=== PATIENT | female | born 2005 | race Two or more races ===

== ENCOUNTER → 2025-04-14 | Outpatient (CLI) | payer MEDICAID, SELFPAY ==
--- NOTE | 2025-04-14 08:45 | XR_ITS ---
Examination: Abdomen sonogram, complete Date and time of exam: April 14, 2025 0840 hours INDICATIONS: Bilateral flank pain beginning 3 months ago. Technique: Multiple real-time grayscale transabdominal sonographic images of the abdomen have been obtained. Findings: Normal gallbladder Normal common bile duct 0.2 cm Pancreatic head 1.4 cm Aorta not enlarged Liver 15.6 cm smooth contour no focal liver lesions Normal hepatopedal portal venous flow Patent IVC Right kidney 9.7 cm cortex 1.2 cm Left kidney 9.1 cm cortex 1.7 cm No hydronephrosis Spleen 10.9 cm IMPRESSION: Normal gallbladder Normal common bile duct. Liver normal size no focal liver lesions
== END | disposition home or self-care (01) ==
LOC: CDIM 08:23
DX: R10.9 Unspecified abdominal pain (principal)
CPT/HCPCS: 76700

== ENCOUNTER 2025-04-16 01:30 | Emergency (ER) | payer MEDICAID, SELFPAY ==
[2025-04-16 01:31] VITALS: BMI 16.9
[2025-04-16 02:03] VITALS: BP 110/73; PULSE 89; RESP 15; TEMP 36.9; O2SAT 100
--- NOTE | 2025-04-16 02:34 | PD.EDABDPN ---
ED Abdominal Pain RME/HPI General Chief Complaint: Abdominal Pain Stated complaint: ABD PAIN X30 MINUTES Time seen by provider: 04/16/25 02:27 Arrival date/time: 04/16/25 01:30 RME / HPI RME / HPI narrative: DR OWENS MAIN ED EVALUATION: 19 y/o female with recent Hx of UTI presents to ED c/o severe epigastric abdominal pain and 2 episodes of diarrhea x 2 hours. Patient is unsure if she has been diagnosed with Gastritis in the past. She denies nausea, vomiting, constipation, cough or any other associated symptoms or aggravating factors. No modifying factors, no radiation, no migration. No other pain reported overall. Related Data Previous Rx's ?Medication ?Instructions ?Recorded psyllium husk 3 gram/5.4 gram oral 1 tbsp PO QDAY constipation #284 12/06/19 powder grams Allergies Allergy/AdvReac Type Severity Reaction Status Date / Time Penicillins AdvReac Intermediate SOB Verified 04/16/25 01:31 Review of Systems Review of Systems Systems Reviewed: All systems reviewed, normal except as documented Past Medical History Social History SMOKING STATUS: Never smoker ED Exam Narrative Physical exam: GENERAL APPEARANCE: alert and oriented x 4, well-developed, well-nourished, no acute distress VITALS: All vitals were reviewed and the pulse ox is 100% on room air, which is normal according to my interpretation. HEENT: Normocephalic, atraumatic; pupils equal, round, reactive to light; EOMI; mucous membranes pink, moist; oropharynx clear NECK: Supple LUNGS: CTABL; no wheezes, no rales, no rhonchi HEART: Regular rate, regular rhythm; normal S1, S2; no murmurs ABDOMEN: non distended; normal BS; soft, no tenderness, no guarding, no rebound; no masses, no organomegaly, no hernia BACK: no CVA tenderness EXTREMITIES: atraumatic; no edema NEUROLOGIC: awake; alert and oriented x4; cranial nerves II-XII grossly intact; no focal sensory or motor deficits PSYCHIATRIC: appropriate mood and affect SKIN: warm, dry, normal color; no rashes Course Quality Measures none Orders Category Date Time Status CT Screening NOW Care 04/16/25 04:[address] abdomen pelvis w con Stat Exams 04/16/25 04:50 Ordered CBC Stat Lab 04/16/25 03:05 Completed CMP [Comprehensive Metabolic Panel] Stat Lab 04/16/25 03:05 Completed HCG Qualitative,Urine Stat Lab 04/16/25 02:46 Completed Lipase Stat Lab 04/16/25 03:05 Completed UA, C/S IF [Urinalysis, C/S if Indicated] Stat Lab 04/16/25 02:46 Completed Lidocaine 2% Viscous [Xylocaine 2% Viscous] Med 04/16/25 02:30 Discontinued 15 ml PO X1 ONE Morphine Inj Med 04/16/25 04:49 Once 5 mg IVP X1 ONE Ondansetron Inj [Zofran Inj] Med 04/16/25 04:49 Once 4 mg IVP X1 ONE Ondansetron Odt [Zofran Odt] Med 04/16/25 02:30 Discontinued 4 mg PO X1 ONE Sodium Chloride 0.9% 1000 ml [Ns] 1,000 ml Med 04/16/25 04:49 Ordered IV 999 mls/hr mg Hyd/Al Hyd/Cristina Susp [Maalox Susp] Med 04/16/25 02:30 Discontinued 30 ml PO X1 ONE Reevaluation(s) Reevaluation #1: Patient has vomited, has diarrhea and still c/o diffused abdominal pain. Patient states she had an US on Friday to R/O hydronephrosis that was unremarkable. Will order abdomen/pelvis CT with contrast. Time: 04:48 Vital Signs Vital signs: Vital Signs Temperature 98.4 F 04/16/25 02:03 Pulse Rate 89 04/16/25 02:03 Respiratory Rate 15 04/16/25 02:03 Blood Pressure 110/73 04/16/25 02:03 Pulse Oximetry (%) 100 04/16/25 02:03 Oxygen Delivery Method Room Air 04/16/25 02:03 Abdominal Pain MDM MDM Narrative MDM Narrative:: Scribe Attestation: I, Catalina Camarena, am scribing for and in the presence of Dr. Owens. Provider Notation: Although this document has been carefully reviewed, there may still be some phonetic and other typographical errors.? These errors are purely grammatical due to imperfections in the software program and should not be construed in any way to? compromise the substance of the patient's medical care during this visit. Patient pending CT with contrast. Patient will be signed-out to oncoming ED physician. Patient data External records reviewed:: [facility] previous records (Reviewed prior ED records from 05/09/23. Patient was seen for Gastritis.) Clinical information provided by:: patient Social determinants that could affect healthcare access:: none Patient has the following chronic illnesses:: None reported How is presenting disease/condition affected by chronic disease/condition?: no chronic disease Evaluation data The following diagnostics were reviewed and interpreted by me:: lab results and radiology exam(s) Lab and/or radiology exams considered but not ordered:: None Interpretation Summary: Bloodwork and urine are unremarkable. RADIOLOGY Abdomen/Pelvis CT: Pending. Medications / Prescriptions Medications or Prescriptions considered but not ordered:: None Medication administrations:: Medication Administration History Sodium Chloride (Ns) 1,000 mls @ 999 mls/hr IV .Q1H1M ONE Stop: 04/16/25 05:49 Morphine Sulfate (Morphine Sulf Inj 10 Mg/Ml Vial) 5 mg IVP X1 ONE Stop: 04/16/25 04:50 Ondansetron HCl (Ondansetron Inj 2 Mg/Ml Inj 2 Ml) 4 mg IVP X1 ONE Stop: 04/16/25 04:50 Discontinued Medications Al Hydrox/Mg Hydrox/Simethicone (Mg Hyd/Al Hyd/Cristina (Maalox Reg) Susp 30 Ml Udc) 30 ml PO X1 ONE Stop: 04/16/25 02:31 Last Admin: 04/16/25 03:22 Dose: 30 ml Documented By: CONNIE Lidocaine HCl (Lidocaine Viscous 2% 15 Ml Udc) 15 ml PO X1 ONE Stop: 04/16/25 02:31 Last Admin: 04/16/25 03:22 Dose: 15 ml Documented By: CONNIE Ondansetron HCl (Ondansetron Odt 4 Mg Tabrap) 4 mg PO X1 ONE; Protocol Stop: 04/16/25 02:31 Last Admin: 04/16/25 03:22 Dose: 4 mg Documented By: CONNIE See above Consultations Consultation(s) initiated? (list below): No Diagnosis Differential diagnosis abdominal pain: abdominal pain, acute appendicitis, calculus of kidney, constipation, gastroenteritis, pancreatitis, small bowel obstruction and other (UTI, Sepsis, Pyelonephritis, Gasritis, GERD, Peptic Ulcer) Most likely diagnosis given after review of the tests above:: Leukocytosis, Abdominal pain. Admission Indicated Admission indicated?: not indicated Explain why admission is indicated or not indicated:: Patient pending CT. Admission Request Was there a request for admission?: No Disposition Plan Disposition Plan: other (specify) (Signed-out to oncoming ED physician at 6 AM.) Discharge Plan Prescriptions/Referrals Prescriptions/Med Rec: No Action psyllium husk 3 gram/5.4 gram powder 1 tbsp PO QDAY Qty: 284 0RF Rx Instructions: mix into at least 8 oz of water or juice before administering Problem List Clinical Impression: Abdominal pain, Leukocytosis Patient/Caregiver Discharge Instructions Print Language: Martiniquais
[2025-04-16 03:02] LABS: Collection Type, Urine Clean Catch
[2025-04-16 03:05] LABS: Bilirubin,Urine Negative (Negative); Blood,Urine Negative (Negative); Clarity,Urine Clear (Clear/Hazy); Color,Urine Lt-Yellow (Lt Yel-Yel); Culture Indicated,Urine Not Indicated; Glucose, Urine Negative (Negative); HCG Qualitative,Urine Negative; Ketones,Urine 1+ (Negative); Leukocyte Esterase,Urine Positive (Negative); Nitrite,Urine Negative (Negative); Protein,Urine Negative (Neg - Trace); RBC,Urine 5 /hpf (0-3); Specific Gravity,Urine 1.025 (1.001-1.035); Squamous Epithelial Cell,Urine 1 /hpf (0-5); Urobilinogen,Urine Negative mg/dL (0.0-1.0); WBC,Urine 1 /hpf (0-5)
[2025-04-16] MEDS: MG HYD/AL HYD/SIME (Maalox Reg) SUSP 30 ML UDC PO (03:22)
[2025-04-16] MEDS: ONDANSETRON ODT 4 MG TABRAP PO (03:22)
[2025-04-16] MEDS: LIDOCAINE VISCOUS 2% 15 ML UDC PO (03:22)
[2025-04-16 03:37] LABS: Basophils # (Auto) 0.1 Thou/mm3 (0.0-0.2); Basophils % (Auto) 0 % (0-2.5); Eosinophils # (Auto) 0.1 Thou/mm3 (0.0-0.5); Eosinophils % (Auto) 0 % (0-10); Hematocrit 37.1 % (36.0-46.0); Hemoglobin 12.9 g/dL (12.0-16.0); Immature Granulocytes % (Auto) 0 % (0-0); Immature Granulocytes Auto 0.06 Thou/mm3 (0.00-0.00); Lymphocytes # (Auto) 1.4 Thou/mm3 (1.0-4.8); Lymphocytes % (Auto) 8 % (10-50); Mean Corpuscular HGB Conc 34.8 g/dl (31.0-37.0); Mean Corpuscular Hemoglobin 28.2 pg (25.0-35.0); Mean Corpuscular Volume 81 fL (80-100); Monocytes # (Auto) 1.1 Thou/mm3 (0.0-0.8); Monocytes % (Auto) 6 % (0-12); Neutrophils % (Auto) 85 % (37-80); Nucleated Red Blood Cell % 0 /100 WBC (0); Platelet Count 226 Thou/mm3 (140-440); RDW Standard Deviation 37.4 fL (36.4-46.3); Red Blood Count 4.57 Miln/mm3 (4.00-5.20); White Blood Count 17.7 Thou/mm3 (4.5-11.0)
[2025-04-16 04:02] LABS: Alanine Aminotransferase 11 U/L (10-49); Albumin, Serum 4.9 gm/dL (3.5-5.0); Albumin/Globulin Ratio 1.9 (1.2-2.2); Alkaline Phosphatase 55 U/L (46-116); Anion Gap 10 (7-16); Aspartate Amino Transferase 15 U/L (0-34); BUN/Creatinine Ratio 15 Ratio (12-20); Bilirubin,Total 0.5 mg/dL (0.3-1.2); Blood Urea Nitrogen 12 mg/dL (9-23); Carbon Dioxide 24.5 mMol/L (20.0-31.0); Chloride 104 mMol/L (98-107); Creatinine (Component) 0.8 mg/dL (0.6-1.3); Estimated Creatinine Clearance 84.3 mL/min (>60); Globulin 2.6 gm/dL (2.3-3.5); Glucose 117 mg/dL (74-106); Lipase 34 U/L (12-53); Osmolality,Calculated 276 (275-295); Potassium 3.8 mMol/L (3.4-5.1); Sodium 138 mMol/L (136-145); Total Protein 7.5 gm/dL (5.7-8.2); eGFR > 60 See Note
--- NOTE | 2025-04-16 04:50 | XR_ITS ---
Examination: CT abdomen with intravenous contrast CT pelvis with intravenous contrast 2-D coronal reconstructions 2-D sagittal reconstructions Date and time of exam:April 08, 2025 0612 hours INDICATIONS: Epigastric pain. Beginning today CTDI: vol (mGy) 6 DLP: (mGycm) 305. Technique: Multiple axial sections of the abdomen and pelvis have been obtained. 64 slice high-resolution scanner used. 3 mm axial sections have been obtained, post intravenous injection 60 cc Isovue-370. 2-D sagittal, coronal reconstructions obtained. Low dose protocols were performed. One or more of the following dose reduction techniques were used; automated exposure control, adjustment of the mA and/or KV according to patient size, use of iterative reconstruction technique. Findings: Axial image 86 demonstrates mucosal thickening in the gastric antrum and duodenum No focal liver or splenic lesions No gallstones No pancreatic mass. No renal or ureteral calculi, no hydronephrosis Aorta normal size Appendix is fluid-filled, axial image 138 and measures 6 mm in thickness without definite periappendiceal inflammatory changes No pericecal change No bowel obstruction or diverticulitis The uterus is retroverted There is mild free fluid in the pelvis No bladder mass or bladder calculi The osseous structures are intact IMPRESSION: The appendix, axial image 138, is fluid-filled and measures 6 mm in thickness without definite periappendiceal inflammatory change There is no pericecal inflammatory change, the appearance should be clinically correlated There is mucosal thickening in the gastric antrum and duodenum, suspicious for gastritis duodenitis
[2025-04-16 04:51] VITALS: BP 113/74; PULSE 81; RESP 16; TEMP 36.7; O2SAT 100
--- NOTE | 2025-04-16 05:26 | PC.NURSE ---
PATIENT STATES SHE DOES NOT WANT IV MORPHINE OR ZOFRAN AT THIS TIME AND WILL LET NURSE KNOW WHEN NEEDED.
[2025-04-16] MEDS: SODIUM CHLORIDE 0.9% 1000 ML 1,000 ML 999 ML IV (05:27)
--- NOTE | 2025-04-16 07:07 | PD.EDABDPN ---
ED Abdominal Pain RME/HPI General Chief Complaint: Abdominal Pain Stated complaint: ABD PAIN X30 MINUTES Time seen by provider: 04/16/25 02:27 Arrival date/time: 04/16/25 01:30 RME / HPI RME / HPI narrative: DR COTE MAIN ED EVALUATION: 19 y/o female with recent Hx of UTI presents to ED c/o severe epigastric abdominal pain and 2 episodes of diarrhea x 2 hours. Patient is unsure if she has been diagnosed with Gastritis in the past. She denies nausea, vomiting, constipation, cough or any other associated symptoms or aggravating factors. No modifying factors, no radiation, no migration. No other pain reported overall. Related Data Previous Rx's ?Medication ?Instructions ?Recorded psyllium husk 3 gram/5.4 gram oral 1 tbsp PO QDAY constipation #284 12/06/19 powder grams bismuth subsalicylate 262 mg 1 tab PO QID 2 weeks #56 tabs 04/16/25 chewable tablet (Bismuth) metronidazole 500 mg tablet 500 mg PO TID 2 weeks #42 tabs 04/16/25 pantoprazole 40 mg granules 40 mg PO QDAY #30 ea 04/16/25 delayed-release for susp in packet (Protonix) tetracycline 500 mg capsule 500 mg PO QID 2 weeks #56 caps 04/16/25 Allergies Allergy/AdvReac Type Severity Reaction Status Date / Time Penicillins AdvReac Intermediate SOB Verified 04/16/25 01:31 Course Orders Category Date Time Status CT Screening NOW Care 04/16/25 04:[address] abdomen pelvis w con Stat Exams 04/16/25 04:50 Completed CBC Stat Lab 04/16/25 03:05 Completed CMP [Comprehensive Metabolic Panel] Stat Lab 04/16/25 03:05 Completed HCG Qualitative,Urine Stat Lab 04/16/25 02:46 Completed Lipase Stat Lab 04/16/25 03:05 Completed UA, C/S IF [Urinalysis, C/S if Indicated] Stat Lab 04/16/25 02:46 Completed Lidocaine 2% Viscous [Xylocaine 2% Viscous] Med 04/16/25 02:30 Discontinued 15 ml PO X1 ONE Morphine Inj Med 04/16/25 04:49 Discontinued 5 mg IVP X1 ONE Ondansetron Inj [Zofran Inj] Med 04/16/25 04:49 Discontinued 4 mg IVP X1 ONE Ondansetron Odt [Zofran Odt] Med 04/16/25 02:30 Discontinued 4 mg PO X1 ONE Sodium Chloride 0.9% 1000 ml [Ns] 1,000 ml Med 04/16/25 04:49 Discontinued IV 999 mls/hr mg Hyd/Al Hyd/Cristina Susp [Maalox Susp] Med 04/16/25 02:30 Discontinued 30 ml PO X1 ONE Vital Signs Vital signs: Vital Signs Temperature 98.4 F 04/16/25 02:03 Pulse Rate 89 04/16/25 02:03 Respiratory Rate 15 04/16/25 02:03 Blood Pressure 110/73 04/16/25 02:03 Pulse Oximetry (%) 100 04/16/25 02:03 Oxygen Delivery Method Room Air 04/16/25 02:03 Abdominal Pain MDM Medications / Prescriptions Medication administrations:: Medication Administration History Discontinued Medications Al Hydrox/Mg Hydrox/Simethicone (Mg Hyd/Al Hyd/Cristina (Maalox Reg) Susp 30 Ml Udc) 30 ml PO X1 ONE Stop: 04/16/25 02:31 Last Admin: 04/16/25 03:22 Dose: 30 ml Documented By: CONNIE Sodium Chloride (Ns) 1,000 mls @ 999 mls/hr IV .Q1H1M ONE Stop: 04/16/25 05:49 Last Infusion: 04/16/25 06:37 Dose: Infused Documented By: Admin: 04/16/25 05:27 Dose: 999 mls/hr Documented By: TOREY Lidocaine HCl (Lidocaine Viscous 2% 15 Ml Udc) 15 ml PO X1 ONE Stop: 04/16/25 02:31 Last Admin: 04/16/25 03:22 Dose: 15 ml Documented By: CONNIE Morphine Sulfate (Morphine Sulf Inj 10 Mg/Ml Vial) 5 mg IVP X1 ONE Stop: 04/16/25 04:50 Last Admin: 04/16/25 06:23 Dose: Not Given Documented By: TOREY Non-Admin Reason: Patient Refused Ondansetron HCl (Ondansetron Odt 4 Mg Tabrap) 4 mg PO X1 ONE; Protocol Stop: 04/16/25 02:31 Last Admin: 04/16/25 03:22 Dose: 4 mg Documented By: CONNIE Ondansetron HCl (Ondansetron Inj 2 Mg/Ml Inj 2 Ml) 4 mg IVP X1 ONE Stop: 04/16/25 04:50 Last Admin: 04/16/25 06:23 Dose: Not Given Documented By: TOREY Non-Admin Reason: Patient Refused Discharge Plan Plan Patient Disposition: HOME (Self Care) Prescriptions/Referrals Prescriptions/Med Rec: New pantoprazole [Protonix] [address] for susp in packet 40 mg PO QDAY Qty: 30 0RF bismuth subsalicylate [Bismuth] 262 mg tablet,chewable 1 tab PO QID 14 Days Qty: 56 0RF tetracycline 500 mg capsule 500 mg PO QID 14 Days Qty: 56 0RF metronidazole 500 mg tablet 500 mg PO TID 14 Days Qty: 42 0RF No Action psyllium husk 3 gram/5.4 gram powder 1 tbsp PO QDAY Qty: 284 0RF Rx Instructions: mix into at least 8 oz of water or juice before administering Problem List Clinical Impression: Abdominal pain, Leukocytosis, Peptic ulcer disease Patient/Caregiver Discharge Instructions Education Materials: ED PUD Additional Instructions: Follow-up with your doctor in 3 to 5 days Print Language: Algerian Stand Alone Forms: [employer]elle Award Info., Patient Portal Info Letter
--- NOTE | 2025-04-16 07:35 | EDNOTE_ITS ---
Emergency Room Addendum Addendum Narrative: 0600: Care assumed from Dr. Owens, the previous shift emergency physician. Past medical, surgical, social and family history reviewed. Vitals and home medications reviewed. I will assume the care of the patient at this time, pending CT abdomen report and final disposition. Please refer to the emergency department record for history and examination from initial visit.?The following addendum documentation note is intended to reflect any pending information, findings, or radiology results not included in the patient?s initial chart. 19 year old female with history of gastritis otherwise healthy presents to the ED for evaluation of abdominal pain beginning several hours prior to arrival. Pain localized to the epigastric region without radiation, described as a fullness dull ache, rating as severe. No known modifying factors at home. Denies weight loss. While in the ED patient was given Zofran, GI cocktail, Morphine, and IV fluids with improvement. Patient also had an CT of abdomen/pelvis performed showing gastritis. During my examination, patient had tenderness to the epigastric region. Labs showed leukocytosis otherwise unremarkable. Urine negative for infection. Assessment: Peptic ulcer disease most likely due to H.Pylori infection Plan: Discharged home with Bismuth, Metronidazole, Protonix, Tetracycline for suspected H.Pylori. RADIOLOGY Ordering Physician: Josie Owens MD Date of Service: 04/16/25 Procedure(s): CT abdomen pelvis w con Accession Number(s): [id number] cc: Kristian Mayfield MD; NO PRIMARY/FAMILY,PHYSICIAN; Josie Owens MD~ Examination: CT abdomen with intravenous contrast CT pelvis with intravenous contrast 2-D coronal reconstructions 2-D sagittal reconstructions Date and time of exam:April 08, 2025 0612 hours INDICATIONS: Epigastric pain. Beginning today CTDI: vol (mGy) 6 DLP: (mGycm) 305. Technique: Multiple axial sections of the abdomen and pelvis have been obtained. 64 slice high-resolution scanner used. 3 mm axial sections have been obtained, post intravenous injection 60 cc Isovue-370. 2-D sagittal, coronal reconstructions obtained. Low dose protocols were performed. One or more of the following dose reduction techniques were used; automated exposure control, adjustment of the mA and/or KV according to patient size, use of iterative reconstruction technique. Findings: Axial image 86 demonstrates mucosal thickening in the gastric antrum and duodenum No focal liver or splenic lesions No gallstones No pancreatic mass. No renal or ureteral calculi, no hydronephrosis Aorta normal size Appendix is fluid-filled, axial image 138 and measures 6 mm in thickness without definite periappendiceal inflammatory changes No pericecal change No bowel obstruction or diverticulitis The uterus is retroverted There is mild free fluid in the pelvis No bladder mass or bladder calculi The osseous structures are intact IMPRESSION: The appendix, axial image 138, is fluid-filled and measures 6 mm in thickness without definite periappendiceal inflammatory change There is no pericecal inflammatory change, the appearance should be clinically correlated There is mucosal thickening in the gastric antrum and duodenum, suspicious for gastritis duodenitis Dictated By: Kristian Mayfield MD Signed By: <Electronically signed by Kristian Mayfield MD in [place]>04/16/25 0629
== END 2025-04-16 07:08 | disposition home or self-care (01) ==
PROVIDERS: Emergency Medicine; Emergency Provider Emergency Medicine
DX: R10.13 Epigastric pain (principal); D72.829 Elevated white blood cell count, unspecified
CPT/HCPCS: 36415; 74177; 80053; 81001; 81025; 83690; 85025; 96360; 99285; A4649; J3490; J7030; Q0162; Q9967; A9270

== ENCOUNTER → 2025-04-20 | Outpatient (CLI) | payer MEDICAID, SELFPAY ==
--- NOTE | 2025-04-20 08:25 | XR_ITS ---
Examination: Scoliosis survey 2, views. Technique: AP standing thoracic, AP standing lumbar spine, two views. Exam date and time: April 20, 2025 at 0830 hours INDICATIONS: History scoliosis, back pain Findings: Thoracic levoscoliosis 6 degrees Thoracolumbar dextroscoliosis 11 degrees Normal heart size Lungs are clear Moderate stool in the colon IMPRESSION: Scoliosis as above
== END | disposition home or self-care (01) ==
LOC: CDIM 08:03
PROVIDERS: PCP Nurse Practitioner; Referring Provider Nurse Practitioner; Visit Provider Nurse Practitioner
DX: M41.84 Other forms of scoliosis, thoracic region (principal); M41.85 Other forms of scoliosis, thoracolumbar region
CPT/HCPCS: 72082